=== PATIENT | female | born 1985 | race Two or more races ===

== ENCOUNTER 2018-01-07 14:31 | Inpatient (IN) | payer OTHER ==
[~2018-01-07] VITALS: Ht 149.9 cm; Wt 3.2 kg
[2018-01-09] MEDS ORDERED: PRENATAL TABLE1 EACH PO (09:59)
== END 2018-01-12 13:29 | disposition home or self-care (01) | DRG 766 ==
LOC: LDR 01-09 09:24 → OB/GYN 01-09 09:24 → O/R 01-09 13:44 → OB/GYN 01-09 14:37 → LDR 01-17 13:15
PROVIDERS: Obstetrics & Gynecology
PROC: 4A1HXCZ Monitoring of Products of Conception, Cardiac Rate, External Approach (ICD-10-PCS; 2018-01-09)
PROC: 10D00Z1 Extraction of Products of Conception, Low, Open Approach (ICD-10-PCS; principal; 2018-01-09 13:00)
PROC: 4A033R1 Measurement of Arterial Saturation, Peripheral, Percutaneous Approach (ICD-10-PCS; 2018-01-10)
DX: O32.1XX0 Maternal care for breech presentation, not applicable or unspecified (principal); Z3A.38 38 weeks gestation of pregnancy; Z37.0 Single live birth